=== PATIENT | female | born 1935 | race Caucasian/White ===

== ENCOUNTER → 2017-08-14 | Outpatient (CLI) | payer OTHER ==
[~2017-08-14] MED LIST: ACIDOPHILUS LA1 EACH; ALLERGY SYRING1 EAC1 IM; AMLODIPINE BESY10 MG PO; ATIVAN0.5 MG PO; BACTRIM DS TAB1 EACH PO; BENICAR40 MG PO; BYSTOLIC 5 MG5 MG PO; CENTRUM ULTRA1 EACH PO; CITRACAL + D C1 EACH PO; CLONIDINE HCL0.2 M2 PO; CLONIDINE0.1 PO; COMPAZINE10 MG PO; DARVOCET-N 1001 EAC1; DICLOXACILLIN250 M1 PO; DILTIAZEM 24HR240 MG PO; FENTANYL PA25 MCG/HR TRANSDERM; FLEET ENEMA118 ML RC; HYDROCODON-ACE1 EAC5 PO; IMODIUM A-D1 MG/5 ML; LASIX 20 MG TAB20 MG PO; LOPRESSOR25 PO; LORATIDINE 10 M10 M1 PO; LOSARTAN POTAS100 MG PO; MIRALAX255 GM PO; MOBIC7.5 MG PO; NITROSTAT0.4 MG SL; NORCO 10-325 T1 EACH PO; NORVASC 2.5 MG2.5 M1 PO; NORVASC 5 MG TAB5 MG PO; OMEPRAZOLE PO; PANTOPRAZOLE SO40 MG PO; PERCOCET 5-3251 EACH PO; PREDNISONE 20 M20 M1 PO; PREVALITE PACKE1 PKT; PRILOSEC40 MG PO; PROMETHAZINE12.5 M1 PO; TUMS PO; TYLENOL325 MG PO; VITAMIN D1000 UNI1 PO; VITAMINC500 PO; ZOFRAN ODT4 MG PO; ZOFRAN4 MG
== END ==
LOC: RAD 04:25
DX: Z12.31 Encounter for screening mammogram for malignant neoplasm of breast (principal)

== ENCOUNTER → 2018-08-31 | Outpatient (CLI) | payer OTHER | LOC: RAD 13:31 | DX: Z12.31 Encounter for screening mammogram for malignant neoplasm of breast (principal); I10 Essential (primary) hypertension; K21.9 Gastro-esophageal reflux disease without esophagitis ==